=== PATIENT | female | born 1945 | race Caucasian/White ===

== ENCOUNTER → 2020-05-02 | Outpatient (CLI) | payer OTHER ==
[~2020-05-02] MED LIST: ACYCLOVIR400 MG PO; ALPRAZOLAM0.5 MG PO; ASPIRIN EC81 MG PO; ATORVASTATIN CA20 MG PO; CYMBALTA60 MG PO; ELIQUIS 2.5 MG2.5 MG PO; FOLIC ACID1 MG PO; HYDROCODON-ACE1 EAC2 PO; KENALOG CREAM 015 GM TOP; LEVAQUIN500 MG PO; MACROBID 100 M100 MG PO; NEURONTIN600 MG PO; NORCO 5-325 TA1 EACH PO; NORCO 7.5-3251 EACH PO; OMEPRAZOLE20 MG PO; PHENERGAN 25 MG25 M1 PO; POLY-IRON150 MG PO; RELAFEN500 MG PO; SYNTHROID112 MCG PO; THIAMINE HCL100 MG PO; TOPAMAX50 MG PO; XANAX0.5 MG PO; [UNRECOGNIZED DRUG - REMARK] PO
[2020-05-02 12:53] LABS: HEMOGLOBIN 12.6 gm/dl (12.3-15.3); RED BLOOD COUNT 4.13 M/UL (4.00-5.10); WHITE BLOOD COUNT 11.6 K/UL (4.5-11.0)
[2020-05-02 13:15] LABS: BUN/CREATININE RATIO 28 (0-10)
== END ==
LOC: OPSV2 11:24
PROVIDERS: Orthopaedic Surgery
DX: Z01.818 Encounter for other preprocedural examination (principal); T84.84XA Pain due to internal orthopedic prosthetic devices, implants and grafts, initial encounter; I45.10 Unspecified right bundle-branch block; R94.31 Abnormal electrocardiogram [ECG] [EKG]
CPT/HCPCS: 80048; 85025; 93005

== ENCOUNTER → 2020-05-06 | Day surgery (SDC) | payer OTHER, SELFPAY ==
[~2020-05-06] VITALS: Ht 162.6 cm; Wt 53.1 kg
== END | disposition home or self-care (01) ==
LOC: OR 06:33
DX: T84.84XA Pain due to internal orthopedic prosthetic devices, implants and grafts, initial encounter (principal); G62.9 Polyneuropathy, unspecified; E89.0 Postprocedural hypothyroidism; F32.9 Major depressive disorder, single episode, unspecified; F41.0 Panic disorder [episodic paroxysmal anxiety]; M19.90 Unspecified osteoarthritis, unspecified site; Z87.891 Personal history of nicotine dependence; Z98.890 Other specified postprocedural states; Z86.73 Personal history of transient ischemic attack (TIA), and cerebral infarction without residual deficits; Z87.81 Personal history of (healed) traumatic fracture; Z88.0 Allergy status to penicillin; Z88.2 Allergy status to sulfonamides; Z88.3 Allergy status to other anti-infective agents; Z88.8 Allergy status to other drugs, medicaments and biological substances; Z79.82 Long term (current) use of aspirin; Z79.899 Other long term (current) drug therapy
CPT/HCPCS: 73560; 76000; J0690; J1100; J2001; J2405; J2704; J3010; J7030; J7120

== ENCOUNTER → 2020-12-04 | Outpatient (CLI) | payer OTHER | LOC: MRI 08:30 | DX: E04.9 Nontoxic goiter, unspecified (principal); R94.02 Abnormal brain scan | CPT/HCPCS: 36415; 70553; 76536; 82565; A9577 ==